=== PATIENT | female | born 2005 ===

== ENCOUNTER 2025-02-20 10:38 | Outpatient (CLI) | payer MEDICAID ==
[2025-02-20] VITALS (21 sets, daily range): BP systolic 86–133; BP diastolic 30–101; PULSE 96–139
--- NOTE | 2025-02-22 21:07 | CARDIOLOGY REPORT ---
DATE OF SERVICE: 02/20/2025 DICTATING PHYSICIAN: LEELA Nuno MD PRIMARY PHYSICIAN: Kathryn Fuentes. CARDIOLOGY: LEELA Nuno MD GENDER: Female. AGE: 19. INDICATION: The patient is a 19-year-old female with episodes of dizziness. This study was done to evaluate for cardiodepressor type of syncope. DESCRIPTION OF PROCEDURE: Routine tilt table protocol was followed. FINDING: In supine resting condition, the patient's heart rate was 103 per minute and blood pressure was 115/67. At 30 minutes at 70-degree tilt, the patient's heart rate was 139 per minute and blood pressure 118/70. The patient complained of burning feet. After 40 minutes at 70 degrees, the patient's heart rate was 118 per minute with a blood pressure 116/75. The patient did complain of dizziness and headache. After supine resting condition, the patient's heart rate was 106 per minute, blood pressure 126/72. The patient was asymptomatic. IMPRESSION: A 19-year-old female with cardiac tilt table findings and negative for cardiodepressor type of syncope. Her heart rate did increase from 103 to 139. Her blood pressure, however, did not drop. The patient appears to have postural tachycardia. RECOMMENDATIONS: Recommend clinical correlation. LEELA Nuno MD TID: [id number] RECEIPT: [id number] /[facility]
== END 2025-02-20 23:59 | disposition home or self-care (01) ==
LOC: CARD DIAG 10:38
DX: R00.0 Tachycardia, unspecified (principal); I95.1 Orthostatic hypotension
CPT/HCPCS: 93660